=== PATIENT | female | born 1960 | race African-American/Black ===

== ENCOUNTER 2017-04-09 17:13 | Emergency (ER) | payer OTHER ==
[~2017-04-09] VITALS: Ht 154.9 cm; Wt 76.2 kg
[2017-04-09] MEDS ORDERED: MEDROLDOSEPACK PO (17:41)
[2017-04-09 17:45] VITALS: BP 152/92
== END 2017-04-09 17:47 | disposition home or self-care (01) ==
LOC: ER 17:13
DX: R21 Rash and other nonspecific skin eruption (principal); F10.99 Alcohol use, unspecified with unspecified alcohol-induced disorder

== ENCOUNTER → 2018-12-27 | Outpatient (CLI) | payer OTHER ==
[~2018-12-27] MED LIST: MEDROLDOSEPACK PO
== END ==
LOC: RAD 12:07
DX: S43.031A Inferior subluxation of right humerus, initial encounter (principal); M19.011 Primary osteoarthritis, right shoulder; X58.XXXA Exposure to other specified factors, initial encounter; Y93.89 Activity, other specified; Y92.89 Other specified places as the place of occurrence of the external cause; Y99.8 Other external cause status